=== PATIENT | male | born 1970 | race Caucasian/White ===

== ENCOUNTER 2016-08-10 21:21 | Emergency (ER) | payer BC ==
[2016-08-10] MEDS ORDERED: Ibuprofen TAB* 400 MG PO ONE (21:37)
[2016-08-10 21:41] VITALS: BP 134/79
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
--- NOTE | 2016-08-10 22:00 | RAD ---
INDICATION: Right knee injury COMPARISON: None TECHNIQUE: AP, lateral, tunnel, and sunrise were obtained. FINDINGS: There are no acute osseous findings. There is osteoarthritis with spurring about the lateral joint space compartment and the patellofemoral joint space compartment. There is mild narrowing the medial joint space compartment as well as the patellofemoral joint space compartment. There is no joint effusion. IMPRESSION: OSTEOARTHRITIS. NO ACUTE FINDINGS.
--- NOTE | 2016-08-10 22:01 | RAD ---
INDICATION: Pelvic pain. Injury. COMPARISON: None TECHNIQUE: A single AP view of the pelvis is submitted. FINDINGS: Osseous structures: There are no acute osseous findings. SI joints and symphysis: Intact. The hips articulate normally. Soft tissues: No acute findings Other: None IMPRESSION: NO ACUTE PLAIN RADIOGRAPHIC ABNORMALITIES.
== END 2016-08-10 22:11 | disposition home or self-care (01) ==
LOC: UCCORT 21:21
DX: S80.01XA Contusion of right knee, initial encounter (principal); S70.02XA Contusion of left hip, initial encounter; V86.92XA Unspecified occupant of snowmobile injured in nontraffic accident, initial encounter; Y93.29 Activity, other involving ice and snow; Y92.9 Unspecified place or not applicable; M17.11 Unilateral primary osteoarthritis, right knee; I10 Essential (primary) hypertension
CPT/HCPCS: 72170; 99212; A9270-GY; G0463

== ENCOUNTER 2017-05-28 21:02 | Emergency (ER) | payer BC ==
[2017-05-28 21:51] VITALS: BP 133/74
--- NOTE | 2017-05-28 22:05 | UC ---
Respiratory Complaint HPI - HPI Summary HPI Summary: Congestion and pressure of the sinuses for 3 days. - History of Current Complaint Chief Complaint: UCRespiratory Stated Complaint: CONGESTION Time Seen by Provider: 05/28/17 21:57 Hx Obtained From: Patient Onset/Duration: Gradual Onset, Lasting Days, Still Present Timing: Constant Severity Initially: Moderate Severity Currently: Moderate Character: Cough: Nonproductive Aggravating Factors: Deep Breaths, Recumbent Position Alleviating Factors: Nothing Associated Signs And Symptoms: Positive: URI, Nasal Congestion, Sinus Discomfort. Negative: Fever, Chills - Allergies/Home Medications Allergies/Adverse Reactions: Allergies Allergy/AdvReac Type Severity Reaction Status Date / Time Bee Venom Allergy Swelling Verified 05/28/17 21:51 Of Face,Lips,& Throat PMH/Surg Hx/FS Hx/Imm Hx Previously Healthy: Yes - Surgical History Surgical History: None - Family History Known Family History: Positive: Hypertension - Social History Alcohol Use: Occasionally Substance Use Type: None Smoking Status (MU): Never Smoked Tobacco Review of Systems Constitutional: Negative ENT: Nasal Discharge, Sinus Congestion All Other Systems Reviewed And Are Negative: Yes Physical Exam Triage Information Reviewed: Yes Appearance: Well-Appearing, No Pain Distress, Well-Nourished Vital Signs: Initial Vital Signs Temp 97.8 F 05/28/17 21:47 Pulse 79 05/28/17 21:47 Resp 16 05/28/17 21:47 BP 133/74 05/28/17 21:47 Pulse Ox 98 05/28/17 21:47 Vital Signs Reviewed: Yes Eyes: Positive: Conjunctiva Clear ENT: Positive: Normal ENT inspection, Hearing grossly normal, Pharynx normal, Pharyngeal erythema, Nasal congestion, TMs normal. Negative: Nasal drainage, TM bulging, TM dull, TM red, Tonsillar swelling, Tonsillar exudate, Trismus, Muffled voice, Hoarse voice, Dental tenderness Neck: Positive: Supple, Nontender, No Lymphadenopathy Respiratory Exam: Normal Respiratory: Positive: Chest non-tender, Lungs clear, Normal breath sounds, No respiratory distress, No accessory muscle use, Respiratory distress Cardiovascular: Positive: RRR, No Murmur, Pulses Normal, Brisk Capillary Refill Abdomen Description: Positive: Nontender, No Organomegaly, Soft, Bruit. Negative: Distended, Guarding Musculoskeletal: Positive: Strength Intact, ROM Intact, No Edema Neurological: Positive: Alert, Muscle Tone Normal. Negative: Fatigued Skin: Negative: rashes UC Diagnostic Evaluation - Laboratory O2 Sat by Pulse Oximetry: 98 Respiratory Course/Dx - Differential Dx/Diagnosis Provider Diagnoses: uri. nasal congestion. viral illness. Discharge - Discharge Plan Condition: Good Disposition: HOME Prescriptions: Amoxicillin PO (*) [Amoxicillin 500 MG CAP*] 500 mg PO TID #30 cap Patient Education Materials: Upper Respiratory Infection (ED) Referrals: Patito Bosch MD [Primary Care Provider] - If Needed
== END 2017-05-28 22:25 | disposition home or self-care (01) ==
LOC: UCCORT 21:02
DX: J06.9 Acute upper respiratory infection, unspecified (principal); B34.9 Viral infection, unspecified; R09.81 Nasal congestion; Z91.030 Bee allergy status
CPT/HCPCS: 99212; G0463

== ENCOUNTER 2018-03-20 19:34 | Emergency (ER) | payer BC ==
[2018-03-20 19:47] VITALS: BP 154/83
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
[2018-03-20] MEDS ORDERED: Ketorolac INJ* 60 MG/2 ML VIAL IM ONE (20:14)
[2018-03-20] MEDS ORDERED: Cyclobenzaprine TAB* 10 MG PO ONE (20:14)
== END 2018-03-20 20:52 | disposition home or self-care (01) ==
LOC: UCCORT 19:34
DX: M54.5 Low back pain (principal)
CPT/HCPCS: 81003; 96372; 99212; A9270-GY; G0463; J1885

== ENCOUNTER 2019-03-10 21:46 | Emergency (ER) | payer BC ==
[2019-03-10 21:55] VITALS: BP 108/66
--- NOTE | 2019-03-10 22:09 | UC ---
Skin Complaint HPI - HPI Summary HPI Summary: open sore noticed 03/08/19, has "sharp shooting" pains only at night, feels like "electricity"; no known injury or bite, otherwise feels well - History of Current Complaint Chief Complaint: UCBiteInjury Time Seen by Provider: 03/10/19 21:50 Stated Complaint: BITE RIGHT ANKLE Hx Obtained From: Patient Onset/Duration: Sudden Onset, Lasting Days Skin Exposure Onset/Duration: Days Ago Timing: Intermittent Episodes Lasting: Onset Severity: Mild Current Severity: Mild Pain Intensity: 0 Character: Redness Aggravating Factor(s): Nothing Alleviating Factor(s): Nothing Related History: Possible Reaction to: Insect - Allergy/Home Medications Allergies/Adverse Reactions: Allergies Allergy/AdvReac Type Severity Reaction Status Date / Time bee venom protein (honey bee) Allergy Swelling Verified 03/10/19 21:55 Of Face,Lips,& Throat Home Medications: Home Medications NK [No Home Medications Reported] 03/10/19 [History Confirmed 03/10/19] PMH/Surg Hx/FS Hx/Imm Hx Previously Healthy: Yes - Surgical History Surgical History: None - Family History Known Family History: Positive: Hypertension, Other - kidney stones - Social History Alcohol Use: Occasionally Substance Use Type: None Smoking Status (MU): Never Smoked Tobacco - Immunization History Vaccination Up to Date: Yes Review of Systems All Other Systems Reviewed And Are Negative: Yes Skin: Positive: Other - bug bite Neurovascular: Positive: Other - nerve irritation that is intermittent at night Is Patient Immunocompromised?: No Physical Exam Triage Information Reviewed: Yes Appearance: Well-Appearing, Well-Nourished, Pain Distress Vital Signs: Initial Vital Signs Temp 98.1 F 03/10/19 21:49 Pulse 91 03/10/19 21:49 Resp 17 03/10/19 21:49 BP 108/66 03/10/19 21:49 Pulse Ox 98 03/10/19 21:49 Vital Signs Reviewed: Yes Eye Exam: Normal ENT Exam: Normal Dental Exam: Normal Neck exam: Normal Respiratory Exam: Normal Cardiovascular Exam: Normal Abdominal Exam: Normal Musculoskeletal Exam: Normal Musculoskeletal: Positive: Strength Intact, ROM Intact, No Edema Neurological Exam: Normal Neurological: Positive: Alert, Muscle Tone Normal Psychological Exam: Normal Skin: Positive: Significant Lesion(s) - small area of insect bite that is scabbed, no erythema or swelling, no drainage. Course/Dx - Course Course Of Treatment: hx obtained, exam performed ,meds reviewed, educated on inflammatory response and medication to take for that. - Diagnoses Provider Diagnosis: Leg pain, medial Discharge - Sign-Out/Discharge Documenting (check all that apply): Patient Departure All imaging exams completed and their final reports reviewed: No Studies - Discharge Plan Condition: Stable Disposition: HOME Referrals: Patito Bosch MD [Primary Care Provider] - Additional Instructions: 1. for the next 2 days, do naproxen every 13 hours for inflammation 2. Use a flexeril at betime. 3. Keep the area covered with non stick dressing 4. Elevate the foot at rest. 5. if the feeling worsens or persists follow up with your primary provider for further evaluation - Billing Disposition and Condition Condition: STABLE Disposition: Home
== END 2019-03-10 22:12 | disposition home or self-care (01) ==
LOC: UCCORT 21:46
DX: M79.606 Pain in leg, unspecified (principal)
CPT/HCPCS: 99211; G0463